=== PATIENT | female | born 1990 | race Two or more races ===

== ENCOUNTER 2016-11-17 19:23 | Emergency (ER) | payer MEDICAID, OTHER ==
[~2016-11-17] VITALS: Ht 154.9 cm; Wt 80.7 kg
[2016-11-17 19:26] VITALS: BP 132/80
[2016-11-17] MEDS ORDERED: FLUORESCEIN OPHTHALMIC 1 MG STRIP ONE (19:47)
[2016-11-17] MEDS ORDERED: PROPARACAINE OPHTH 0.5%, 15ML ONE (19:47)
[2016-11-17] MEDS ORDERED: FLUORESCEIN OPHTHALMIC 1 MG STRIP EACHEYE ONE (20:00)
[2016-11-17] MEDS ORDERED: PROPARACAINE OPHTH 0.5%, 15ML EACHEYE ONE (20:00)
== END 2016-11-17 20:22 | disposition home or self-care (01) ==
LOC: ED 20:16
DX: H00.012 Hordeolum externum right lower eyelid (principal)
CPT/HCPCS: 99283